=== PATIENT | male | born 1950 | race American Indian/Alaskan Native ===

== ENCOUNTER 2019-08-13 08:26 | Outpatient (CLI) | payer BC ==
[2019-08-13 11:11] LABS: Basophils % (Auto) 0.4 % (0.0-1.8); Eosinophils # (Auto) 0.1 K/mm3 (0.0-0.4); Eosinophils % (Auto) 3.6 % (0.0-4.3); Hematocrit 43.3 % (35.5-45.6); Hemoglobin 14.7 gm/dl (11.8-15.2); Lymphocytes # (Auto) 1.9 K/mm3 (1.2-5.4); Lymphocytes % (Auto) 44.3 % (13.4-35.0); Mean Corpuscular HGB Conc 34 % (32-34); Mean Corpuscular Volume 96 fl (84-94); Monocytes # (Auto) 0.5 K/mm3 (0.0-0.8); Platelet Count 226 K/mm3 (140-440); Red Blood Count 4.51 M/mm3 (3.65-5.03); Red Cell Distribution Width 13.4 % (13.2-15.2)
[2019-08-13 11:26] LABS: Alanine Aminotransferase 26 units/L (7-56); Albumin 4.4 g/dL (3.9-5); BUN/Creatinine Ratio 13; Blood Urea Nitrogen 13 mg/dL (9-20); Calcium 9.6 mg/dL (8.4-10.2); Chol/HDL Ratio 5.29 %; HDL Cholesterol 47 mg/dL (40-59); Hemolysis Index 3; LDL Cholesterol,Direct 196 mg/dL (50-130)
[2019-08-15 13:31] LABS: Vitamin D, 25-OH, D2 <4 ng/mL
== END 2019-08-13 08:27 | disposition home or self-care (01) ==
LOC: LAB 08:26
PROVIDERS: ATTEND Internal Medicine
DX: Z12.5 Encounter for screening for malignant neoplasm of prostate (principal); Z13.21 Encounter for screening for nutritional disorder; Z13.29 Encounter for screening for other suspected endocrine disorder; E78.5 Hyperlipidemia, unspecified; E11.9 Type 2 diabetes mellitus without complications
CPT/HCPCS: 36415; 80053; 80061; 82306; 82607; 83036; 84153; 84443; 85025

== ENCOUNTER 2019-12-05 11:21 | Outpatient (CLI) | payer MEDICARE ==
--- NOTE | 2019-12-05 11:57 | XRay Report ---
CHEST 2 VIEWS INDICATION: R05 COUGH. COMPARISON: None. FINDINGS: Support devices: None. Heart: Within normal limits. Pulmonary vasculature: Normal. Lungs/pleura: The lungs are normally expanded and clear. No pleural effusion. No pneumothorax. 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 IMPRESSION: 1. No acute findings. Signer Name: Ifeanyi Mims MD Signed: 12/05/2019 11:53 AM Workstation Name: [id number]
== END 2019-12-05 11:22 | disposition home or self-care (01) ==
LOC: XRAY 11:21
PROVIDERS: ATTEND Internal Medicine
DX: R05 Cough (principal); M47.814 Spondylosis without myelopathy or radiculopathy, thoracic region; M25.78 Osteophyte, vertebrae
CPT/HCPCS: 71046